=== PATIENT | male | born 1980 | race Two or more races ===

== ENCOUNTER 2025-07-22 21:15 | Emergency (ER) | payer OTHER ==
[~2025-07-22] VITALS: Ht 175.3 cm; Wt 95.7 kg
[2025-07-22] MEDS ORDERED: PRILOSEC OTC20 MG PO (23:17)
[2025-07-22] MEDS ORDERED: PEPCID AC20 MG (23:18)
[2025-07-22 23:20] VITALS: BP 144/90; O2SAT 99
[2025-07-22] MEDS ORDERED: FAMOTIDINE/PF 20 MG/2 ML VIAL IV STA (23:52)
[2025-07-22] MEDS ORDERED: ONDANSETRON HCL 2 MG/ML VIAL IV STA (23:52)
[2025-07-22] MEDS ORDERED: 0.9 % SODIUM CHLORIDE 1,000 ML IV STA (23:52)
[2025-07-23] MEDS ORDERED: ONDANSETRON HCL 2 MG/ML VIAL ONE (01:03)
[2025-07-23] MEDS ORDERED: FAMOTIDINE/PF 20 MG/2 ML VIAL ONE (01:04)
[2025-07-23 01:43] LABS: BASO % 0.4 % (0.1-1.2); EOS # 0.23 (0.04-0.54); EOS % 3.2 % (0.7-7.0); LYMPH # 2.82 (1.18-3.74); LYMPH % 39.7 % (19.3-53.1); MEAN PLATELET VOLUME 10.80 fl (9.4-12.4); MONO # 0.62 (0.24-0.82); MONO % 8.7 % (4.7-12.5); NEUT # 3.39 (1.56-6.13); NEUT % 47.9 % (34.0-71.1); RED CELL DISTRIBUTION WIDTH 12.1 % (11.6-14.4)
[2025-07-23 01:51] LABS: INR 1.04
[2025-07-23 02:16] LABS: ALT/SGPT 48 U/L (12-78); AST/SGOT 22 U/L (15-37); BILIRUBIN TOTAL 0.39 mg/dL (0.3-1.2); BUN CREA RATIO 13 (7.0-25.0); CREATININE SERUM 0.93 mg/dL (0.70-1.30); GFR 87.47; GLOBULINA 3.9 G/DL (2.4-3.5); GLUCOSE FASTING 96 mg/dL (65-100); OSMOLALITY SERUM 281 MOSM/KG (275-295)
[2025-07-23 02:32] LABS: ERYTHROCYTE SEDIMENTATION RATE 18 mm/hr (0-15)
[2025-07-23 03:00] LABS: URINE APPEARANCE Clear; URINE BILIRRUBIN Negative (NEGATIVE); URINE BLOOD Negative; URINE COLOR Yellow; URINE GLUCOSE Negative (NEGATIVE); URINE KETONE Negative (NEGATIVE); URINE LEUKOCYTE Negative; URINE NITRATE Negative; URINE PROTEIN Negative (NEGATIVE); URINE UROBILINOGEN 0.2 E.U./dl
[2025-07-23 03:04] LABS: URINE RBC 2.9 uL (0.0-20.8)
[2025-07-23 03:43] LABS: URINE BACTERIA 3.4 uL (0.0-1933); URINE CAST 0.14 uL (0.0-1.40); URINE EPITHELIAL CELLS 0.9 uL (0.0-38.8); URINE WBC 0.6 uL (0.0-23.2)
[2025-07-23] MEDS ORDERED: PEPCID AC20 MG PO (04:27)
[2025-07-23] MEDS ORDERED: PRILOSEC OTC20 MG PO (04:27)
[2025-07-23] MEDS ORDERED: ONDANSETRON ODT4 MG PO (04:27)
[2025-07-23] MEDS ORDERED: LEVSIN/SL0.125 MG SL (04:27)
== END 2025-07-23 05:02 | disposition home or self-care (01) ==
LOC: ER 21:16
PROVIDERS: Physician Assistant Medical
DX: K21.9 Gastro-esophageal reflux disease without esophagitis (principal); R00.2 Palpitations; K57.90 Diverticulosis of intestine, part unspecified, without perforation or abscess without bleeding; K40.20 Bilateral inguinal hernia, without obstruction or gangrene, not specified as recurrent; I10 Essential (primary) hypertension; Z87.11 Personal history of peptic ulcer disease; Z91.013 Allergy to seafood